=== PATIENT | female | born 1990 | race Caucasian/White ===

== ENCOUNTER 2017-03-08 23:17 | Emergency (ER) | payer OTHER ==
[~2017-03-08] VITALS: Ht 167.6 cm; Wt 56.8 kg
[2017-03-08 23:21] VITALS: BP 113/80; PULSE 57; RESP 18; O2SAT 100
--- NOTE | 2017-03-09 00:39 | ED.REPORT ---
HPI-Dyspnea / Wheezing Date of Service Mar 09, 2017 ED Provider: Panda Leavitt MD A 26 year old female with a history of Crohn's disease and childhood asthma presents to the ED with a sore throat onset two days ago. The patient's symptoms began with bilateral ear pain and subsequently progressed to throat pain, non-productive cough, and voice hoarseness, then shortness of breath and chest tightness developed over the past 24 hours. The patient denies fever, chills, headache, fatigue, rash, or other symptoms. She has used OTC medications with minimal relief, most recently Tylenol at 2100. The patient has had similar symptoms in the past, associated with her childhood asthma. Nursing Notes Stated Complaint: DIFFICULTY BREATHING/LOST VOICE Chief Complaint: Respiratory Complaints Nursing Notes Reviewed: Yes Allergies: Uncoded Allergies: HAZELNUTS (Allergy, Unknown, 03/08/17) Scheduled Prednisone (PredniSONE) 20 Mg Tablet 20 MG PO BID General Time Seen by MD: 00:05 Chief Complaint Other (Sore Throat) Hx Obtained From: Patient Arrived By: Walk-in Sudden in Onset?: No Onset Occurred: 2 days ago Symptom Duration: Since onset Location: : Chest left: Chest right Quality: Painful (Tightness) Severity: Current: Moderate Severity: Maximum: Moderate Associated with: Reports: Chest pain, Cough, Denies: Fever Context Asthma History: Asthma diagnosed (Childhood) Recent Healthcare: No recent doctor visit Similar Sx Previous: Yes Past Medical History Past Medical History Crohn's disease Childhood asthma Past Surgical History None reported Smoking History Never Smoker Social History Other Social History: Good social support Occupation middle school band teacher Ambulatory Status Independent Review of Systems Constitutional: Denies: Chills, Fatigue, Fever Ears / Nose / Throat: Reports: Earache bilateral, Sore throat, Voice change ( Hoarseness) Respiratory: Reports: Non-productive cough, Shortness of breath Cardiovascular: Reports: Chest pain (Tightness) Skin: Denies Rash Complete sys rev & neg: except as marked. GI: Denies: Diarrhea, Vomiting Neurologic: Denies: Headache Physical Exam Physical Exam Notes: Initial Vital Signs Vital Signs (First) Date Time Temp Pulse Resp B/P Pulse Ox O2 Delivery O2 Flow Rate FiO2 03/08/17 23:21 36.3 57 18 113/80 100 Room Air Initial VS: Reviewed, Vital signs normal Head / Eyes: Atraumatic, Normocephalic Skin: Warm, Dry, No cyanosis Neurologic: Alert, Oriented, Nonfocal Psychiatric: Mood/affect normal, Behavior normal, Normal thought content General/Constitutional: Awake, Alert Neck: Supple, Full range of motion Respiratory / Chest: Breath sounds NL, Breath sounds = bilat, No respiratory distress Resp Distress / Stridor: Positive: Stridor mild Cardiovascular: Heart rate NL, Regular rhythm, Heart sounds NL ENT: Airway patent, Mucous membranes moist Pharynx / Tonsils / Uvula: Positive: Pharyngeal erythema, Negative: Tonsillar exudate L, Tonsillar exudate R Right Ear / Mastoid: Positive: Tympanic membrane red Left Ear / Mastoid: Positive: Ext canal cerumen impact Voice hoarse Re-Eval/Medical Decision Med Decision/Clinical Course 26-year-old female who presents with swollen and sore throat and laryngitis. She has some viral respiratory symptoms associated with this. She improved dramatically with racemic epinephrine nebulizer. She also received 20 mg of prednisone and a prescription for a short course of 20 twice a day for 2 days. Follow-up with her regular doctor as needed. Re-Evaluation/Progress : Time of Eval: 02:35 Patient Status: Condition improved Re-Evaluation/Progress Note: Patient is feeling better and her voice is becoming more clear. Discussed with patient diagnosis and plan for discharge. Follow-up and return to the ER instructions given. Patient agrees with plan for care and all questions were addressed. Counseled Regarding: Diagnosis, Need for follow-up, When/why to return to ED Discharge & Departure Impression: Primary Impression: Laryngitis Disposition: Home Discharge Condition All VS Reviewed: Yes Condition: Improved Patient Instructions: Laryngitis (ED) Additional Instructions: Thank you for entrusting us with your care. Please take Prednisone as prescribed. A cool mist vaporizer and exposure to the cool night air may help relieve your symptoms. Call your doctor tomorrow for a follow-up appointment. Return to the ER with any new or worsening symptoms. Referrals: NOPCP (PCP) Scribe Attestation Portions of this note were transcribed by Serenity Cameron. I, Dr. Leavitt, personally performed the history, physical exam, and medical decision-making; I reviewed and confirmed the accuracy of the information in the transcribed note. Signed by: Neva Fulton, 03/09/2017, 03:00 Panda Leavitt MD Mar 09, 2017 00:39 SERENITY CAMERON Mar 09, 2017 00:46
[2017-03-09] MEDS ORDERED: Albuterol-Ipratropium 3 mL Inhalation Solution NEB ONE (00:40)
[2017-03-09] MEDS ORDERED: Epinephrine Racemic 2.25% 0.5 mL Inhalation Solution NEB ONE (01:00)
[2017-03-09 01:07] VITALS: PULSE 53; RESP 18; O2SAT 98
[2017-03-09] MEDS ORDERED: predniSONE 20 mg Tablet PO ONE (01:20)
[2017-03-09] MEDS ORDERED: PRE20 PO (02:35)
[2017-03-09 02:40] VITALS: BP 112/69; PULSE 64; RESP 16; O2SAT 100
== END 2017-03-09 02:41 | disposition home or self-care (01) ==
LOC: SED 23:17
DX: J04.0 Acute laryngitis (principal); R06.02 Shortness of breath